=== PATIENT | female | born 1950 | race Caucasian/White ===

== ENCOUNTER → 2019-06-05 | Outpatient (CLI) | payer MEDICARE, BC ==
[~2019-06-05] MED LIST: AMLO10; ASPI325; ATEN100; BUPR150ER; CALCA500CH; CALCAVITD; DAILY MULTIPLE1 EACH; LOSA50; METF500; PROG100; Vesicare10 MG
== END | disposition home or self-care (01) ==
LOC: OLS 07:56 → LAB SHORT 07:56
DX: N85.01 Benign endometrial hyperplasia (principal)
CPT/HCPCS: 88305

== ENCOUNTER 2023-08-15 12:12 | Day surgery (SDC) | payer MEDICARE, BC ==
[~2023-08-15] VITALS: Ht 165.1 cm; Wt 115.4 kg
[2023-08-15] MEDS ORDERED: CLIMARA1 EACH (12:55)
[2023-08-15] MEDS ORDERED: ZOLOFT20 MG/ML (12:55)
--- NOTE | 2023-08-15 13:43 | NUR ---
08/15/23 4212 Nathalia Gonzalez PT UPDATED ON DELAY IN START TIME WE CALLED HER IN EARLY DUE TO A CANCELLATION BEFORE HER AND MD FRANCES WHO IS ANESTHESIA GOT CALLED TO L&D TO DO AN EPIDURAL. BED IN LOW, LOCKED POSTION, CALL LIGHT IN REACH.
[2023-08-15 15:57] VITALS: BP 107/65
== END 2023-08-15 15:45 | disposition home or self-care (01) ==
LOC: ORSCSDS 12:12
PROVIDERS: Surgery
PROC: 0DBM8ZX Excision of Descending Colon, Via Natural or Artificial Opening Endoscopic, Diagnostic (ICD-10-PCS; principal; 2023-08-15 15:00)
PROC: 0DBL8ZX Excision of Transverse Colon, Via Natural or Artificial Opening Endoscopic, Diagnostic (ICD-10-PCS; principal; 2023-08-15 15:00)
DX: Z12.11 Encounter for screening for malignant neoplasm of colon (principal); D12.3 Benign neoplasm of transverse colon; D12.4 Benign neoplasm of descending colon; K57.30 Diverticulosis of large intestine without perforation or abscess without bleeding; K64.8 Other hemorrhoids; I10 Essential (primary) hypertension; G47.33 Obstructive sleep apnea (adult) (pediatric); Z79.84 Long term (current) use of oral hypoglycemic drugs; Z79.899 Other long term (current) drug therapy; E66.01 Morbid (severe) obesity due to excess calories; Z68.41 Body mass index [BMI] 40.0-44.9, adult; F41.8 Other specified anxiety disorders; J45.909 Unspecified asthma, uncomplicated
CPT/HCPCS: 82947; 88305; J0461; J2001; J2405; J2704; J7120; Q9968